=== PATIENT | female | born 2000 | race African-American/Black ===

== ENCOUNTER 2021-09-23 00:35 | Observation (INO) | payer MEDICAID, OTHER ==
[~2021-09-23] VITALS: Ht 170.2 cm; Wt 83.9 kg
[2021-09-23] MEDS ORDERED: PREN1TAB78 PO (01:26)
[2021-09-23] MEDS ORDERED: FOLIC ACID (01:26)
== END 2021-09-23 03:29 | disposition home or self-care (01) ==
LOC: 8 EST LDRP 00:35
PROVIDERS: ADMIT Obstetrics & Gynecology; ATTEND Obstetrics & Gynecology
DX: O26.892 Other specified pregnancy related conditions, second trimester (principal); R10.30 Lower abdominal pain, unspecified; N89.8 Other specified noninflammatory disorders of vagina; O62.9 Abnormality of forces of labor, unspecified; Z3A.23 23 weeks gestation of pregnancy
CPT/HCPCS: 59025; 76805; 76817; G0378; 99281